=== PATIENT | female | born 1960 | race Caucasian/White ===

== ENCOUNTER 2018-04-14 08:11 | Day surgery (SDC) | payer OTHER, SELFPAY ==
[~2018-04-14] VITALS: Ht 157.5 cm; Wt 94.3 kg
[~2018-04-14 08:11] MED LIST: ATOR20 PO; Alprazolam ER2 MG PO; DIAZ10 PO; LISI5 PO; MECL25 PO; METF500 PO; METO25ER PO; ONDA4ODT MM; PIOG15; Prinivil10 MG PO; RANI150 PO; SITA25T2 PO
== END 2018-04-14 10:48 | disposition home or self-care (01) ==
LOC: ORSCSDS 08:11
PROVIDERS: Internal Medicine Gastroenterology
PROC: 0DBC8ZX Excision of Ileocecal Valve, Via Natural or Artificial Opening Endoscopic, Diagnostic (ICD-10-PCS; principal; 2018-04-14 09:45)
PROC: 0DBP8ZX Excision of Rectum, Via Natural or Artificial Opening Endoscopic, Diagnostic (ICD-10-PCS; principal; 2018-04-14 09:45)
PROC: 0DBN8ZX Excision of Sigmoid Colon, Via Natural or Artificial Opening Endoscopic, Diagnostic (ICD-10-PCS; principal; 2018-04-14 09:45)
DX: Z12.11 Encounter for screening for malignant neoplasm of colon (principal); D12.0 Benign neoplasm of cecum; D12.8 Benign neoplasm of rectum; K63.5 Polyp of colon; K64.8 Other hemorrhoids; E11.9 Type 2 diabetes mellitus without complications; I10 Essential (primary) hypertension; E78.00 Pure hypercholesterolemia, unspecified; E66.01 Morbid (severe) obesity due to excess calories; Z68.39 Body mass index [BMI] 39.0-39.9, adult; Z79.899 Other long term (current) drug therapy
CPT/HCPCS: 82947

== ENCOUNTER 2019-01-26 23:12 | Emergency (ER) | payer OTHER, SELFPAY ==
[~2019-01-26] VITALS: Ht 157.5 cm; Wt 83.9 kg
[~2019-01-26 23:12] MED LIST changes: +AZIT250 PO
[2019-01-27] MEDS ORDERED: Monodox100 MG PO (01:45)
[2019-01-27] MEDS ORDERED: Diflucan100 MG PO (01:45)
== END 2019-01-27 01:58 | disposition home or self-care (01) ==
LOC: ER 23:12
DX: H92.02 Otalgia, left ear (principal); H66.92 Otitis media, unspecified, left ear; J32.9 Chronic sinusitis, unspecified; B37.3 Candidiasis of vulva and vagina; Z88.0 Allergy status to penicillin; I10 Essential (primary) hypertension; E11.9 Type 2 diabetes mellitus without complications; G43.909 Migraine, unspecified, not intractable, without status migrainosus
CPT/HCPCS: 96372; 99283-25; J3301

== ENCOUNTER → 2019-04-30 | Outpatient (CLI) | payer BC, OTHER ==
[~2019-04-30] MED LIST changes: +Diflucan100 MG PO; +Monodox100 MG PO
== END | disposition home or self-care (01) ==
LOC: LAB SHORT 10:11 → LAB 10:11
PROVIDERS: Nurse Practitioner
DX: Z01.419 Encounter for gynecological examination (general) (routine) without abnormal findings (principal)
CPT/HCPCS: G0145

== ENCOUNTER → 2025-03-29 | Outpatient (CLI) | payer OTHER ==
[2025-03-29 12:25] LABS: Creatinine, Urine Random 33.3 mg/dL (27.00-270.00); Microalb/Creat Ratio UR, Rand 21.321 mg/g (0.000-30.000); Microalbumin, Random Urine 7.1 mg/L (0.000-20.000)
== END ==
LOC: LAB 07:00 → LAB SHORT 07:00
PROVIDERS: Internal Medicine Endocrinology, Diabetes & Metabolism
DX: E11.21 Type 2 diabetes mellitus with diabetic nephropathy (principal)
CPT/HCPCS: 82043; 82570

== ENCOUNTER 2025-06-23 08:07 | Day surgery (SDC) | payer OTHER ==
[2025-06-23] VITALS (9 sets, daily range): BP systolic 133–154; BP diastolic 65–80
[~2025-06-23] VITALS: Ht 157.5 cm; Wt 77.8 kg
[~2025-06-23 08:07] MED LIST changes: +AMLO5 PO; +CeFAZolin Sodium 2,000 MG in NS 100 ML IV SCH; +DULO30 PO; +LOSA25 PO; +METF500C PO; +METO50 PO; +OZEMPIC2 MG/0.75 SC; +ROSUVASTATIN CA10 MG PO; +TRAM50 PO; +Tranexamic Acid 100 ML IV SCH
[2025-06-23] MEDS ORDERED: FentaNYL Citrate 50 MCG/ML 2 ML Injection ONE (08:55)
[2025-06-23] MEDS ORDERED: Midazolam HCl 1MG / ML 2ML Vial ONE (08:55)
[2025-06-23] MEDS ORDERED: Bupivacaine 0.5% HCl 5 MG/ML 30MLVIAL ONE (08:58)
[2025-06-23] MEDS ORDERED: Dexamethasone Sod Phos 10 MG/ML 1ML VIAL ONE (08:58)
[2025-06-23] MEDS ORDERED: Rocuronium Bromide 10 MG/ML 5ML Injection IV ONE (08:58)
[2025-06-23] MEDS ORDERED: Ondansetron HCl 2 MG / ML 2ML Vial ONE (08:58)
[2025-06-23] MEDS ORDERED: Bupivacaine 0.5% W/EPI 1:200000 SDV 30 ML Vial ONE (10:18)
[2025-06-23] MEDS ORDERED: EPINEPhrine HCl 1 MG / ML 30ML Vial ONE (10:18)
--- NOTE | 2025-06-23 10:24 | NUR ---
INTERSCALENE NERVE BLOCK PERFORMED IN SDS; PT TOLERATED WELL. 3-LEAD EKG, 02 SAT & BP MONITORED THROUGHOUT.
[2025-06-23] MEDS ORDERED: FentaNYL Citrate 50 MCG/ML 2 ML Injection IV PRN ×2 (11:20→11:25)
[2025-06-23] MEDS ORDERED: HYDROmorphone HCl/Pf 1MG SYR IV PRN ×2 (11:20→11:25)
[2025-06-23] MEDS ORDERED: Ondansetron HCl 2 MG / ML 2ML Vial IV PRN (11:25)
[2025-06-23] MEDS ORDERED: Phenylephrine HCl 100 MCG/ML-NS 10MLSYR (1MG/10ML) ONE (11:43)
--- NOTE | 2025-06-23 13:29 | NUR ---
REPORT TO Roseann DE LA CRUZ.
--- NOTE | 2025-06-23 13:52 | NUR ---
Discharge instructions reviewed with patient. Patient verbalizes understanding. Copy given to patient to take home. Patient States Post-Procedure ride home has been arranged. Discharged via wheelchair to private car for ride home.
== END 2025-06-23 13:53 | disposition home or self-care (01) ==
LOC: ORSCMMR 08:07 → ORD 09:45 → ORSCMMR 10:15
PROVIDERS: Orthopaedic Surgery Sports Medicine
PROC: 0LM24ZZ Reattachment of Left Shoulder Tendon, Percutaneous Endoscopic Approach (ICD-10-PCS; principal; 2025-06-23 09:45)
PROC: 0R5 Upper Joints, Destruction (ICD-10-PCS; principal; 2025-06-23 09:45)
PROC: 0RNK4ZZ Release Left Shoulder Joint, Percutaneous Endoscopic Approach (ICD-10-PCS; principal; 2025-06-23 09:45)
DX: M75.102 Unspecified rotator cuff tear or rupture of left shoulder, not specified as traumatic (principal); S43.432A Superior glenoid labrum lesion of left shoulder, initial encounter; M25.712 Osteophyte, left shoulder; I10 Essential (primary) hypertension; E11.9 Type 2 diabetes mellitus without complications; F41.9 Anxiety disorder, unspecified; F32.A Depression, unspecified; Z79.899 Other long term (current) drug therapy; Z79.85 Long-term (current) use of injectable non-insulin antidiabetic drugs; E78.00 Pure hypercholesterolemia, unspecified
CPT/HCPCS: 82947; A9270; C1713; J0165; J0690; J1100; J2250; J2371; J2405; J2704; J3010; J7120